=== PATIENT | female | born 1935 | race Caucasian/White ===

== ENCOUNTER 2016-10-20 15:45 | Emergency (ER) | payer MEDICARE, OTHER ==
[2016-10-20] MEDS ORDERED: ACETAMINOPHEN 500 MG TABLET PO ONE (16:17)
[2016-10-20 16:34] LABS: Hematocrit 42.5 % (37.0-47.0); Hemoglobin 14.1 gm/dL (12.5-16.0); Mean Cell Volume 87.4 fl (78-100); Mean Corpuscular Hgb Conc 33.2 g/dl (32-36); Mean Platelet Volume 10.5 fl (6.0-9.5); Neutrophil # 7.1 K/mm3 (1.3-6.0); Neutrophil % 74.1 % (42-75.0); Platelet Count 170 K/mm3 (150-450); Red Blood Count 4.86 M/mm3 (4.2-5.4); Red Cell Distribution Width 13.9 % (11.5-14.0); White Blood Count 9.6 K/mm3 (4.0-10.5)
--- NOTE | 2016-10-20 16:36 | ERNOTE ---
Headache ER HPI - Narrative Date of Service: 10/20/16 - General Presenting Symptoms: headache Time Seen by Provider: 10/20/16 15:58 Source: patient, family, RN/MD, RN notes reviewed, old records Exam Limitations: dementia - Immun/Allergies/Home Medications Immunizations: IMMUNIZATION HX Immunizations Up to Date Yes History of Influenza Vaccine Yes Hx Pneumococcal Vaccination Yes Allergies/Adverse Reactions: Allergies No Known Allergies Allergy (Verified 10/20/16 15:54) Home Medications: HOME MEDICATIONS Enalapril Maleate [Vasotec] 20 mg PO BID 06/19/14 [Last Taken Unknown] Hydrochlorothiazide [Hydrodiuril] 25 mg PO DAILY 06/19/14 [Last Taken Unknown] Meloxicam [Mobic] 15 mg PO BID 06/19/14 [Last Taken Unknown] Metoprolol Succinate [Toprol Xl] 100 mg PO DAILY 06/19/14 [Last Taken Unknown] Simvastatin [Zocor] 10 mg PO DAILY 06/19/14 [Last Taken Unknown] Gabapentin 300 mg PO HS 10/20/16 [Last Taken Unknown] - History of Present Illness Narrative: Yue is a 80-year-old female sent to the emergency department from radiology for a headache. She was having an echocardiogram done when she reported the headache. She initially rated her headache pain at 9 on a scale of 1-10 while in triage, but now reports that the headache is not that bad. She also initially reported that she does not have headaches normally, but her reports that she complains of a headache almost every day. She then admits to having frequent headaches. She then stated that she hadn't had a headache like this one. She has dementia and is a very poor historian. She has not taken her blood pressure medications today. Her blood pressure was over 200 systolic in radiology, but was 157/83 here initially. Her blood pressure readings at a clinic visit almost a month ago were also over 200 systolic. She had not taken her medication that day as well. Date (Duration): 10/20/16 Activity at onset: other - Having echo Timing of Headache: other - Unknown Context Headache: Present: new onset Quality: Present: achy Prior Treament: Reports: recently seen - By senior graphic designer Review of Systems - Review of Systems Constitutional: Absent: fatigue, malaise EYE: Absent: eye pain, blurred vision ENT: Absent: nose congestion, sore throat Respiratory: Absent: shortness of breath, cough Cardiology: Absent: chest pain, syncope Gastrointestinal/Abdominal: Absent: nausea, vomiting Genitourinary: Present: no symptoms reported Musculoskeletal: Present: muscle pain, neck pain. Absent: back pain Skin: Absent: rash, lesions, lumps Neurological: Present: headache. Absent: dizziness/light-headedness Endocrine: Present: no symptoms reported Hematologic/Lymphatic: Present: no symptoms reported Psych: Present: no symptoms reported - Patient's Past Medical History Patient History - Medical: No pertinent hx Patient History - Cardiac/Respiratory: Hypertension, Hyperlipidemia Patient History - Cancer: No Hx of Cancer Patient History - Surgical Procedures: Appendectomy, Cholecystectomy, Hysterectomy, Hernia Repair, Orthopedic Patient History - Other: None LMP (females 10-50): Menopausal - Social History Living Situations: spouse Abuse History: No History of abuse Psych History: No pertinent hx Does anyone smoke in the home?: No Smoking Status: Never smoker Alcohol Use: none Drug Use: none - Immunizations Immunizations Up to Date: Yes Hx Pneumococcal Vaccination: Yes History of Influenza Vaccine: Yes Physical Exam - Physical Exam General Appearance: Present: wd/wn, alert, no apparent distress, other - Pleasant, appropriately dressed and groomed Head Exam: Present: normal inspection, no evidence of injury Eye Exam: Normal inspection: bilateral, PERRL: bilateral, EOMI: bilateral Ears, Nose, Throat: Present: normal ENT inspection Neck: Present: normal inspection, nontender, supple, full range of motion Respiratory: Present: no respiratory distress, normal breath sounds, no accessory muscle use, lungs clear Cardiovascular/Chest: Present: regular rate, rhythm, no murmur Extremity Exam: Present: normal inspection, normal range of motion, no edema Neurological Exam: Present: alert, normal mood/affect, no motor/sensory deficits , normal cerebellar test, disoriented to time, disoriented to situation. Absent : facial droop Skin Exam: Present: normal color, warm/dry ED Progress - Results and Orders Patient's Lab Results:: I have reviewed the patient's lab results. - Vital Signs Patient's Vital Signs:: I have reviewed the patient's vital signs. Vital Signs: Vital Signs 10/20/16 15:46 Temperature 36.5 C Pulse Rate 57 L Respiratory 16 Rate Blood Pressure 157/83 O2 Sat by Pulse 97 Oximetry - CT/Ultrasound CT/Ultrasound Narrative: Head CT without contrast shows no acute intracranial abnormalities - Progress/Reassessment Chief Complaint: Headache Progress:: Improved Progress Note-Subjective: 10/20/16 16:42 Blood pressure now 231/100. She takes enalapril, hydrochlorthiazide and metoprolol at home which she did not take today. IV enalapril and morphine ordered, as well as HCTZ po. HR in 50's so will hold off on any beta elliott for now. Plan - Plan Plan: Blood pressure finally improved with clonidine po. Morphine 1 mg IVP given twice for headache. Difficult to assess if the headache is better as the patient reports that it is gone, but then complains about having a headache a few minutes later. She has not appeared uncomfortable or to be in any distress throughout the duration of her stay.She is to continue her current meds, as cardiology is managing her BP. Departure Clinical Impression: Headache Qualifiers: Headache type: unspecified Headache chronicity pattern: acute headache Intractability: not intractable Qualified Code(s): R51 - Headache Hypertension Qualifiers: Hypertension type: essential hypertension Qualified Code(s): I10 - Essential ( primary) hypertension - Departure Disposition: Home Follow Up Needed Condition: Stable Instructions: Hypertension, [id number] Additional Instructions: TAKE YOUR BLOOD PRESSURE MEDICATIONS DIRECTED ON THE LABEL EVERYDAY YOU CAN TAKE TYLENOL FOR HEADACHE FOLLOW UP WITH YOUR DOCTOR SCHEDULED, OR RETURN TO THE ER IF SYMPTOMS WORSEN Referrals: Melva Watts MD [Primary Care Provider] -
[2016-10-20] MEDS ORDERED: MORPHINE SULFATE 2 MG/ML DISP.SYRIN IM ONE (16:38)
[2016-10-20] MEDS ORDERED: ENALAPRILAT DIHYDRATE 2.5 MG/2 ML VIAL IV ONE ×2 (16:39→17:02)
[2016-10-20] MEDS ORDERED: HYDROCHLOROTHIAZIDE 25 MG TABLET PO ONE (16:39)
[2016-10-20 16:46] LABS: Albumin * 3.8 gm/dl (3.4-5.0); Anion Gap 7.5 mmol/L (6.8-13.8); BUN/Creatinine Ratio 20.5 (9.0-21.6); Bilirubin, Total 1.6 mg/dL (0.0-1.1); Ca. Corrected For Albumin 8.5 mg/dL (8.4-10.2); Calcium * 8.7 mg/dL (7.9-10.9); Carbon Dioxide 33.9 mmol/L (24-32.6); Potassium 3.4 mmol/L (3.4-4.6); Total Protein 7.5 gm/dL (6.2-8.2)
[2016-10-20] MEDS ORDERED: MORPHINE SULFATE 2 MG/ML DISP.SYRIN IV ONE ×2 (17:01→18:06)
[2016-10-20] MEDS ORDERED: HYDROCHLOROTHIAZIDE 25 MG TABLET ONE (17:03)
[2016-10-20] MEDS ORDERED: MORPHINE SULFATE 2 MG/ML DISP.SYRIN ONE ×2 (17:04→17:05)
[2016-10-20] MEDS ORDERED: CLONIDINE HCL 0.1 MG TABLET PO ONE (18:06)
[2016-10-20] MEDS ORDERED: CLONIDINE HCL 0.1 MG TABLET ONE (18:12)
[2016-10-20 19:30] VITALS: BP 172/70
== END 2016-10-20 19:39 | disposition home or self-care (01) ==
LOC: ER 15:45
DX: R51 Headache (principal); I10 Essential (primary) hypertension

== ENCOUNTER 2016-11-15 20:39 | Inpatient (IN) | payer MEDICARE, OTHER ==
[2016-11-15 21:04] LABS: Urine Bilirubin Negative (NEGATIVE); Urine Blood Negative /ul (NEGATIVE); Urine Ketone Negative (NEGATIVE); Urine Nitrite Negative (NEGATIVE); Urine Protein Negative (NEGATIVE); Urine Specific Gravity 1.015 SP.GR. (1.005-1.010); Urine Urobilinogen Normal (NORMAL)
[2016-11-15 21:13] LABS: Urine Appearance Clear; Urine Bacteria 2+; Urine Color Yellow; Urine RBC None Seen /hpf (0-5)
[2016-11-15 21:40] LABS: Hematocrit 43.2 % (37.0-47.0); Hemoglobin 14.4 gm/dL (12.5-16.0); Mean Cell Volume 86.4 fl (78-100); Mean Corpuscular Hemoglobin 28.8 pg (27-31); Mean Corpuscular Hgb Conc 33.3 g/dl (32-36); Mean Platelet Volume 10.1 fl (6.0-9.5); Neutrophil # 5.5 K/mm3 (1.3-6.0); Neutrophil % 66.5 % (42-75.0); Platelet Count 180 K/mm3 (150-450); Red Cell Distribution Width 14.3 % (11.5-14.0); White Blood Count 8.3 K/mm3 (4.0-10.5)
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
[2016-11-15 21:52] LABS: Cocaine Ur Negative (NEGATIVE); Urine Barbiturate Negative (NEGATIVE); Urine Benzodiazepines Negative (NEGATIVE); Urine Opiates Negative (NEGATIVE); Urine PCP Negative (NEGATIVE); Urine THC Negative (NEGATIVE)
[2016-11-15 21:55] LABS: ALT 20 U/L (19-67); AST 18 U/L (0-48); Albumin * 3.8 gm/dl (3.4-5.0); Alkaline Phosphatase * 58 U/L (50-170); BUN/Creatinine Ratio 19.8 (9.0-21.6); Bilirubin, Total 0.7 mg/dL (0.0-1.1); Blood Urea Nitrogen 19 mg/dL (3-23); Ca. Corrected For Albumin 8.8 mg/dL (8.4-10.2); Carbon Dioxide 30.4 mmol/L (24-32.6); Chloride 100 mmol/L (97-106); Glucose * 126 mg/dL (70-110); Potassium 3.4 mmol/L (3.4-4.6); Salicylate Less than 2.8 mg/dL (2.8-20.0); Sodium 141 mmol/L (132-142); TSH * 2.664 uIU/mL (0.358-3.74); Total Protein 7.6 gm/dL (6.2-8.2)
--- NOTE | 2016-11-15 23:44 | HP ---
Chief Complaint - Chief Complaint Date of Service: 11/15/16 Time of Service: 23:44 Chief Complaint: altered mental status History of Present Illness: Yue is a 81 year old patient of Dr Watts with a PMH of bronchitis, HTN, HLD, arthritis and leg pain. Patient was brought into the ER today for altered mental status / worsening confusion. Per chart records, patient's mental health has been worsening over the last several months. She has a history of aggressive behavior to her when he is the "other Don", to the point she fired a home health nurse after believing she was having an affair with him. Patient is alert but disoriented and confused and unable to recall the events of the past day. Patient was previous seen in the ER 10/20/16 with a headache and mild confusion. CT of the head done at that time was non acute. ER eval revealed an unremarkable cbc. unremarkable cmp. tsh wnl. negative uds. negative etoh. ua positive for 75 leukocytes, 5-10 wbc and 2+ wbc. urine culture is pending. last echo done 10/20/16 showed ef 60-65% with mod LVH, diastolic dysfunction, mild MR, mild TR, mild SD, and pulmonary HTN with RVSP at 49. Patient to be admitted for altered mental status and UTI. - Patient's Past Medical History Patient History - Medical: Arthritis, Chronic Pain Patient History - Cardiac/Respiratory: Hypertension, Hyperlipidemia Patient History - Cancer: No Hx of Cancer Patient History - Surgical Procedures: Appendectomy, Cholecystectomy, Hysterectomy, Hernia Repair, Orthopedic Patient History - Other: None LMP (females 10-50): Menopausal - Family History Father Family History - Medical: , History Unknown Family History - Cardiac/Respiratory: History Unknown Family History - Cancer: History Unknown Mother Family History - Medical: , History Unknown Family History - Cardiac/Respiratory: Coronary Heart Disease, Hypertension, Myocardial Infarction Family History - Cancer: No pertinent family hx - Social History Living Situations: spouse Abuse History: No History of abuse Psych History: No pertinent hx Does anyone smoke in the home?: No Smoking Status: Never smoker Have you smoked in the past 12 months: No Do you dip or chew tobacco: No Alcohol Use: none Drug Use: none - Immunizations Immunizations Up to Date: Yes Hx Pneumococcal Vaccination: Yes History of Influenza Vaccine: Yes Review Of Systems (GEN) - Review of Systems Generalized/Overall Review: Present: Malaise, Fatigue. Absent: Fever EENTM: Present: No Symptoms Reported Respiratory: Present: No Symptoms Reported Cardiac: Present: No Symptoms Reported Abdominal: Present: No Symptoms Reported Genitourinary: Present: No Symptoms Reported Musculoskeletal: Present: No Symptoms Reported Neurological: Present: Other - confusion Skin: Present: No Symptoms Reported Endocrine: Present: No Symptoms Reported Misc: All systems neg except as marked Allergies/Adverse Reactions: Allergies Allergy/AdvReac Type Severity Reaction Status Date / Time sulfamethoxazole AdvReac Mild Other Verified 11/15/16 21:13 [From Bactrim] trimethoprim [From Bactrim] AdvReac Mild Other Verified 11/15/16 21:13 Home Medications: HOME MEDICATIONS Enalapril Maleate [Vasotec] 20 mg PO BID 06/19/14 [Last Taken Unknown] Hydrochlorothiazide [Hydrodiuril] 25 mg PO DAILY 06/19/14 [Last Taken Unknown] Meloxicam [Mobic] 7.5 mg PO BID 06/19/14 [Last Taken Unknown] Metoprolol Succinate [Toprol Xl] 100 mg PO BID 06/19/14 [Last Taken Unknown] Simvastatin [Zocor] 10 mg PO DAILY 06/19/14 [Last Taken Unknown] Gabapentin 300 mg PO HS 10/20/16 [Last Taken Unknown] Exam - Exam Vital Signs: Vital Signs - Last Taken Temp 36.4 C L 11/15/16 23:27 Pulse 52 L 11/15/16 23:27 Resp 16 11/15/16 23:27 BP 151/76 11/15/16 22:58 Pulse Ox 100 11/15/16 23:27 Constitutional: Present: Alert, Cooperative, No distress, Elderly ENT Exam: Present: hearing grossly normal Eye Exam: bilateral eye: normal inspection Neck: Present: supple Breasts: Present: Exam deferred Respiratory: Present: chest non-tender, no respiratory distress, decreased breath sounds Cardiovascular/Chest: Present: normal peripheral pulses, regular rate, rhythm, no edema Peripheral Pulses: carotid (R): 2+, carotid (L): 2+, dorsalis-pedis (R): 2+, dorsalis-pedis (L): 2+, radial (R): 2+, radial (L): 2+ Abdomen: Present: soft, nontender, nondistended /Rectal: Present: Exam deferred Extremity: Present: no calf tenderness, other - discolored lowered extremities bilat that are mildly tender to touch - pt states she has "bad circulation" Skin Exam: Present: normal color, warm/dry, no cyanosis Diagnostic Studies: Laboratory Results WBC 8.3 K/mm3 (4.0-10.5) 11/15/16 21:28 RBC 5.00 M/mm3 (4.2-5.4) 11/15/16 21:28 Hgb 14.4 gm/dL (12.5-16.0) 11/15/16 21:28 Hct 43.2 % (37.0-47.0) 11/15/16 21:28 MCV 86.4 fl (78-100) 11/15/16 21:28 MCH 28.8 pg (27-31) 11/15/16 21:28 MCHC 33.3 g/dl (32-36) 11/15/16 21:28 RDW 14.3 % (11.5-14.0) H 11/15/16 21:28 Plt Count 180 K/mm3 (150-450) 11/15/16 21:28 MPV 10.1 fl (6.0-9.5) H 11/15/16 21:28 Immature Gran % (Auto) 0.60 % (0.001-0.429) H 11/15/16 21:28 Immature Gran # (Auto) 0.05 K/mm3 (0.000-0.0310) H 11/15/16 21:28 Neutrophils % 66.5 % (42-75.0) 11/15/16 21:28 Lymphocytes % 22.8 % (20-51) 11/15/16 21:28 Monocytes % 8.1 % (0.0-9) 11/15/16 21:28 Eosinophils % 1.4 % (0.0-3.0) 11/15/16 21:28 Basophils % 0.6 % (0.0-1.0) 11/15/16 21:28 Nucleated RBC % 0.0 k/mm3 (0-1) 11/15/16 21:28 Neutrophils # 5.5 K/mm3 (1.3-6.0) 11/15/16 21:28 Lymphocytes # 1.9 k/mm3 (1.5-3.5) 11/15/16 21:28 Monocytes # 0.7 k/mm3 (0.0-1.0) 11/15/16 21:28 Eosinophils # 0.1 k/mm3 (0.0-0.7) 11/15/16 21:28 Absolute Basophils 0.1 k/mm3 (0.0-0.1) 11/15/16 21:28 Sodium 141 mmol/L (132-142) 11/15/16 21:28 Plasma Sodium 141 mmol/L (130-142) 11/15/16 21:28 Potassium 3.4 mmol/L (3.4-4.6) 11/15/16 21:28 Chloride 100 mmol/L (97-106) 11/15/16 21:28 Carbon Dioxide 30.4 mmol/L (24-32.6) 11/15/16 21:28 Anion Gap 14.0 mmol/L (6.8-13.8) H 11/15/16 21:28 BUN 19 mg/dL (3-23) 11/15/16 21:28 Creatinine 0.96 mg/dL (0.4-1.4) 11/15/16 21:28 Est GFR (Non-Af Amer) 60 mL/min (60-130) 11/15/16 21:28 BUN/Creatinine Ratio 19.8 (9.0-21.6) 11/15/16 21:28 Random Glucose 126 mg/dL (70-110) H 11/15/16 21:28 Calcium 9.0 mg/dL (7.9-10.9) 11/15/16 21:28 Calcium Adj for Albumin 8.8 mg/dL (8.4-10.2) 11/15/16 21:28 Total Bilirubin 0.7 mg/dL (0.0-1.1) 11/15/16 21:28 AST 18 U/L (0-48) 11/15/16 21:28 ALT 20 U/L (19-67) 11/15/16 21:28 Alkaline Phosphatase 58 U/L (50-170) 11/15/16 21:28 Total Protein 7.6 gm/dL (6.2-8.2) 11/15/16 21:28 Albumin 3.8 gm/dl (3.4-5.0) 11/15/16 21:28 TSH 2.664 uIU/mL (0.358-3.74) 11/15/16 21:28 Urine Color Yellow 11/15/16 20:45 Urine Appearance Clear 11/15/16 20:45 Urine pH 7.0 pH (5.0-7.0) 11/15/16 20:45 Ur Specific [place] 1.015 SP.GR. (1.005-1.010) 11/15/16 20:45 Urine Protein Negative mg/dL (NEGATIVE) 11/15/16 20:45 Urine Glucose (UA) Negative mg/dL (NEGATIVE) 11/15/16 20:45 Urine Ketones Negative mg/dL (NEGATIVE) 11/15/16 20:45 Urine Blood Negative /ul (NEGATIVE) 11/15/16 20:45 Urine Nitrate Negative (NEGATIVE) 11/15/16 20:45 Urine Bilirubin Negative mg/dl (NEGATIVE) 11/15/16 20:45 Urine Urobilinogen Normal EU/dl (NORMAL) 11/15/16 20:45 Ur Leukocyte Esterase 75 /ul (NEGATIVE) H 11/15/16 20:45 Urine RBC None seen /hpf (0-5) 11/15/16 20:45 Urine WBC 5-10 /hpf (0-5) H 11/15/16 20:45 Ur Epithelial Cells Trace /hpf (0-5) 11/15/16 20:45 Urine Bacteria 2+ (NONE) H 11/15/16 20:45 Urine Culture Comments Culture to follow 11/15/16 20:45 Salicylates Less than 2.8 mg/dL (2.8-20.0) L 11/15/16 21:28 Urine Opiates Screen Negative (NEGATIVE) 11/15/16 20:45 Acetaminophen Less than 0.2 mcg/mL (10.0-30.0) L 11/15/16 21:28 Barbiturate Screen Negative (NEGATIVE) 11/15/16 20:45 Ur Phencyclidine Scrn Negative (NEGATIVE) 11/15/16 20:45 Urine Amphetamine Negative (NEGATIVE) 11/15/16 20:45 U Benzodiazepines Scrn Negative (NEGATIVE) 11/15/16 20:45 Urine Cocaine Screen Negative (NEGATIVE) 11/15/16 20:45 Urine Marijuana (THC) Negative (NEGATIVE) 11/15/16 20:45 Ethyl Alcohol Less than 3.0 mg/dL (0.0-10.0) 11/15/16 21:28 Assessment/Plan - Narrative Narrative: Altered mental status (AMS) - ? etiology, multiple possibilities exist and may actually be a combination of etiologies - patient on high risk medication - gabapentin - check gabapentin blood level - hold med while admitted - gabapentin adverse reactions include: confusion and alteration in thinking - due to confusion, patient is unable to truly give us a full picture of her symptoms and therefore will need a full workup. - check chest xray - check troponin - with AMS, again, patient may not be competent enough to accurately tell us if she is having chest pain or not. - check ammonia level, lactic acid, procalctonin and vitamin b12 - check blood cultures, especially in light of UTI. - monitor on telemetry - vital signs q 4 hours - reassess in am. UTI - urine culture pending - Start abx - Rocephin 1 gm iv daily - Day #1 - check blood cultures - can contribute to AMS - hydrate gently with NS, especially in light of diastolic dysfunction and pulmonary HTN diastolic CHF / pulmonary HTN - daily weights - strict I&Os - appears euvolemic at this time. - watch fluid status closely HTN - cont bp meds - had HTN urgency at end of september 2016 with SBP over 200, was treated in ER Chronic pain - hold gabapentin for now - use tylenol prn. code status: Full Code VTE: early ambulation GI Proph: protonix po - Assessment/Plan (1) Altered mental status Problem: Acute Qualifiers: Altered mental status type: unspecified Qualified Code(s): R41.82 - Altered mental status, unspecified (2) Urinary tract infection Problem: Acute Qualifiers: Urinary tract infection type: site unspecified Hematuria presence: without hematuria Qualified Code(s): N39.0 - Urinary tract infection, site not specified (3) HLD (hyperlipidemia) Problem: Chronic Qualifiers: Hyperlipidemia type: unspecified Qualified Code(s): E78.5 - Hyperlipidemia , unspecified (4) Chronic pain Problem: Chronic Qualifiers: Chronic pain type: other chronic pain Qualified Code(s): G89.29 - Other chronic pain (5) Hypertension Problem: Chronic Qualifiers: Hypertension type: essential hypertension Qualified Code(s): I10 - Essential (primary) hypertension (6) Diastolic CHF Problem: Chronic Qualifiers: Congestive heart failure chronicity: chronic Qualified Code(s): I50.32 - Chronic diastolic (congestive) heart failure (7) Pulmonary HTN Problem: Chronic
[2016-11-16] MEDS: NORMAL SALINE 1,000 ML IV PRN ×3 (00:03→21:59)
[2016-11-16 00:25] LABS: BNP * 335 pg/mL (5-550); Troponin I Less than 0.017 ng/ml (0.00-0.10); Vitamin B12 319 pg/mL (193-986)
[2016-11-16] MEDS ORDERED: METOPROLOL SUCCINATE 50 MG TABLET.SA PO ONE (00:48)
[2016-11-16] MEDS: ENALAPRIL MALEATE 20 MG TABLET PO SCH ×3 (00:52→20:54)
[2016-11-16] MEDS: METOPROLOL SUCCINATE 100 MG TABLET.SA PO SCH ×3 (00:52→20:53)
[2016-11-16] MEDS: ACETAMINOPHEN 325 MG TABLET PO PRN ×2 (04:18→12:52)
[2016-11-16 06:29] LABS: Hematocrit 41.1 % (37.0-47.0); Hemoglobin 13.7 gm/dL (12.5-16.0); Mean Corpuscular Hemoglobin 28.7 pg (27-31); Mean Corpuscular Hgb Conc 33.3 g/dl (32-36); Mean Platelet Volume 10.1 fl (6.0-9.5); Neutrophil % 65.7 % (42-75.0); Platelet Count 164 K/mm3 (150-450); Red Blood Count 4.78 M/mm3 (4.2-5.4); Red Cell Distribution Width 14.2 % (11.5-14.0); White Blood Count 7.5 K/mm3 (4.0-10.5)
--- NOTE | 2016-11-16 06:57 | PN ---
Progess Note - Interim Narrative: 11/16/16 06:50 Pt. feels fine this am, no complaints. She doesn't recall very well what happened yesterday but can tell me where she is this am [facility], year 1917 (but then corrects 2016) and tells me her name. She states she feels well and would like to go home. PE: Speech is slow and purposeful, but is clear and coherent. CN 2-12 are grossly intact No dysmetria but very slow and purposeful movements. Hand financial controller is equal eliezer 4+ eliezer Plantar and dorsiflexion is equal eliezer and also 4+ A/P: Acute mental status changes. Could be dementia coupled with a UTI causing this with some improvement after dose of abx, but not certain as I am seeing her for first time and don't know her in an outpt setting. PCP notes do mention some memory issues. Do believe outpt neuro consult would be appropriate as Parkinson is one possibility but would assess and treat this outpt. UTI: appears to be better, will start her on cipro discharge planning: believe she can go home later today, but will need close outpt f/u. If sx persist may need NH placement.
[2016-11-16] MEDS: CIPROFLOXACIN HCL 250 MG TABLET PO SCH ×2 (08:24→20:56)
[2016-11-16] MEDS: HYDROCHLOROTHIAZIDE 25 MG TABLET PO SCH (08:24)
[2016-11-16] MEDS ORDERED: SIMVASTATIN 10 MG TABLET PO SCH (09:00)
--- NOTE | 2016-11-16 11:32 | DS ---
(1) Altered mental status Problem: Acute Qualifiers: Altered mental status type: disorientation Qualified Code(s): R41.0 - Disorientation, unspecified (2) Confusion Problem: Resolved (3) Urinary tract infection Problem: Acute Qualifiers: Urinary tract infection type: site unspecified Hematuria presence: without hematuria Qualified Code(s): N39.0 - Urinary tract infection, site not specified (4) Hypertension Problem: Chronic Qualifiers: Hypertension type: essential hypertension Qualified Code(s): I10 - Essential (primary) hypertension Description of Stay: pt admitted for acute mental status changes, UTI. She still appeared to be cognitively slow but without unilateral or definite neurologic deficits other than generalized weakness and slowed movements eliezer and slow purposeful speech. I believe these are more chronic condition issues that were acutely worsened with her UTI. She may have parkinson which would explain all this, but this needs outpt. f/u. I don't believe she is safe to drive or be by herself and is therefore considered home bound, in which case services would be appropriate for continued assessment of her condition. She also may benefit from PT for balance/coordination assessments and tx. Her meloxicam and gabapentin were held for now as these can sometimes cause confusion. These can be restarted as PCP deems appropriate to control pain. Procedures Performed: none Discharge Disposition: Home self care Disposition: Home self-care Condition: Fair Discharge Activity: Activity as tolerated Discharge Diet: General/regular food Referrals: Melva Watts MD [Primary Care Provider] - One Week Additional Patient Instructions (free text): TCM appointment at discharge. Call Deepthi at [phone]. Please fax discharge orders to [facility]. Prescriptions (Any new or edited meds): Ciprofloxacin HCl [Cipro] 250 mg PO BID #10 tablet Complete Home Medications List: Complete Home Medication List: Enalapril Maleate [Vasotec] 20 mg PO BID 06/19/14 Hydrochlorothiazide [Hydrodiuril] 25 mg PO DAILY 06/19/14 Metoprolol Succinate [Toprol Xl] 100 mg PO BID 06/19/14 Simvastatin [Zocor] 10 mg PO DAILY 06/19/14 Ciprofloxacin HCl [Cipro] 250 mg PO BID #10 tablet 11/16/16
[2016-11-16] MEDS ORDERED: ENALAPRIL MALEATE 20 MG TABLET PO STA (12:41)
--- NOTE | 2016-11-16 13:11 | PN ---
Progess Note - Interim Narrative: 11/16/16 13:07 Called from floor as patient acting more confused and SBP in the 200's. Assessing her she could only tell me her name, not place and date as she did this am. No other neurologic deficits noted on exam. A/P: Acute mental status changes that are not her typical baseline. Possibly from hypertensive urgency. Will give her vasotec 20mg now and continue bid. If still elevated will give clonidine o.1mg po. She is not capable of going home and being safe and she is at high risk for having TIA possible CVA so will need to continue her in the hospital on inpatient basis.
[2016-11-16] MEDS ORDERED: CLONIDINE HCL 0.1 MG TABLET PO ONE (14:47)
[2016-11-16] MEDS: SIMVASTATIN 10 MG TABLET PO SCH (20:53)
[2016-11-17] MEDS ORDERED: HALOPERIDOL LACTATE 5 MG/ML VIAL IM ONE (00:07)
[2016-11-17] MEDS ORDERED: hydrALAZINE HCL 25 MG TABLET ONE (00:15)
[2016-11-17] MEDS ORDERED: ENALAPRILAT DIHYDRATE 1.25 MG/ML VIAL IV ONE (00:43)
[2016-11-17] MEDS: METOPROLOL SUCCINATE 100 MG TABLET.SA PO SCH (08:44)
[2016-11-17] MEDS: ENALAPRIL MALEATE 20 MG TABLET PO SCH ×2 (08:44→20:28)
[2016-11-17] MEDS: HYDROCHLOROTHIAZIDE 25 MG TABLET PO SCH (08:44)
[2016-11-17] MEDS: CIPROFLOXACIN HCL 250 MG TABLET PO SCH (08:44)
[2016-11-17 09:47] LABS: Hematocrit 42.4 % (37.0-47.0); Hemoglobin 14.2 gm/dL (12.5-16.0); Mean Cell Volume 86.7 fl (78-100); Mean Corpuscular Hgb Conc 33.5 g/dl (32-36); Mean Platelet Volume 9.7 fl (6.0-9.5); Neutrophil # 5.4 K/mm3 (1.3-6.0); Platelet Count 168 K/mm3 (150-450); Red Blood Count 4.89 M/mm3 (4.2-5.4); Red Cell Distribution Width 14.3 % (11.5-14.0); White Blood Count 7.2 K/mm3 (4.0-10.5)
[2016-11-17] MEDS ORDERED: LORazepam 2 MG/ML DISP.SYRIN IV ONE ×2 (09:47→10:00)
[2016-11-17] MEDS: NORMAL SALINE 1,000 ML IV PRN (09:51)
[2016-11-17] MEDS: amLODIPine BESYLATE 10 MG TABLET PO SCH (09:52)
[2016-11-17 09:54] LABS: Anion Gap 12.1 mmol/L (6.8-13.8); BUN/Creatinine Ratio 15.4 (9.0-21.6); Calcium * 8.6 mg/dL (7.9-10.9); Carbon Dioxide 29.1 mmol/L (24-32.6); Estimated Creat Clear 50.5; Potassium 3.2 mmol/L (3.4-4.6)
[2016-11-17] MEDS ORDERED: POTASSIUM CHLORIDE 40 MEQ/15 ML BTL PO ONE (11:45)
[2016-11-17] MEDS ORDERED: POTASSIUM CHLORIDE 20 MEQ TABLET.SA PO ONE (15:30)
--- NOTE | 2016-11-17 15:58 | PN ---
Subjective - Date and Time Seen Date: 11/17/16 Time: 08:00 Subjective Narrative: Patient seen and examined at bedside. Patient was agitated overnight and given a one-time dose of Haldol 5 mg. This morning, the patient is only able to tell me that her name is Carlos otherwise she is unable to tell me where she is at, her date, the year, who the president is. Objective Objective Narrative: Unable to obtain secondary to patient's clinical condition - Vitals Vitals: Last Vital Signs Temp 36.6 C 11/17/16 14:07 Pulse 54 L 11/17/16 14:07 Resp 18 11/17/16 14:07 BP 187/63 11/17/16 14:07 Pulse Ox 100 11/17/16 14:07 - Abnormal Lab Findings Abnormal Lab Findings: Abnormal Lab Results 11/17/16 11/17/16 Range/Units 09:36 09:36 RDW 14.3 H (11.5-14.0) % MPV 9.7 H (6.0-9.5) fl Lymphocytes % 15.9 L (20-51) % Lymphocytes # 1.2 L (1.5-3.5) k/mm3 Potassium 3.2 L (3.4-4.6) mmol/L Random Glucose 148 H (70-110) mg/dL - Exam Constitutional: Present: Alert, No distress, Elderly. Absent: Oriented x3 ENT Exam: Present: moist mucous membranes Respiratory: Present: lungs clear, normal breath sounds, no respiratory distress , no accessory muscle use Cardiovascular/Chest: Present: regular rate, rhythm, edema - Trace edema in bilateral lower extremities Abdomen: Present: soft, nontender, nondistended Extremity: Present: pedal edema - Trace edema in bilateral lower extremities Skin Exam: Present: warm/dry, other - Venous stasis dermatitis skin changes evident to bilateral lower extremities Neurologic: Present: alert, other - Unable to do a thorough neuro exam secondary to patient's clinical condition and being uncooperative and not following commands. Absent: oriented x 3 Appearance: Absent: appropriate appearance, appropriate insight Assessment/Plan - Problems/Diagnosis (1) Encephalopathy Problem: Acute Narrative: Unclear etiology and work-up thus far unrevealing. It is also unclear what the patient's true baseline mental status. MRI ordered for further evaluation of encephalopathy. I am suspicious that the patient likely has baseline dementia which is acutely worsened by hospital associated delirium. Psychiatry consulted ; await assessment, input and recommendations. The patient will need to be discharged to a nursing facility. (2) Delirium Problem: Acute (3) Hypokalemia Problem: Acute Narrative: Potassium replaced. Recheck BMP in AM. (4) Urinary tract infection Problem: Suspected Qualifiers: Urinary tract infection type: acute cystitis Hematuria presence: without hematuria Qualified Code(s): N30.00 - Acute cystitis without hematuria Narrative: Final urine culture result shows no growth. Continue IV Rocephin with plans for patient to complete a total 3 day course of antibiotics. Patient has received 3 doses of IV Rocephin and she will receive her final dose evening. (5) Hypertension Problem: Chronic Qualifiers: Hypertension type: essential hypertension Qualified Code(s): I10 - Essential (primary) hypertension Narrative: Markedly elevated blood pressures possibly contributing to encephalopathy. Antihypertensive regimen adjusted. Continue to monitor blood pressure closely and continue to make changes to the patient's medications as necessary. Goal blood pressure is less than 140-150/90 mmHg.
[2016-11-17] MEDS: ENOXAPARIN SODIUM 40 MG/0.4 ML SYRG SC SCH (17:05)
[2016-11-17] MEDS: ACETAMINOPHEN 325 MG TABLET PO PRN (17:23)
[2016-11-17] MEDS: SIMVASTATIN 10 MG TABLET PO SCH (20:28)
[2016-11-18 06:34] LABS: Anion Gap 11.4 mmol/L (6.8-13.8); BUN/Creatinine Ratio 15.1 (9.0-21.6); Carbon Dioxide 29.2 mmol/L (24-32.6); Potassium 3.6 mmol/L (3.4-4.6)
[2016-11-18] MEDS: ASPIRIN 81 MG TAB.CHEW PO SCH (09:24)
[2016-11-18] MEDS: amLODIPine BESYLATE 10 MG TABLET PO SCH (09:24)
[2016-11-18] MEDS: HYDROCHLOROTHIAZIDE 25 MG TABLET PO SCH (09:24)
[2016-11-18] MEDS: METOPROLOL SUCCINATE 100 MG TABLET.SA PO SCH (09:25)
[2016-11-18] MEDS: ENALAPRIL MALEATE 20 MG TABLET PO SCH ×2 (09:26→20:57)
[2016-11-18] MEDS: hydrALAZINE HCL 50 MG TABLET PO PRN (11:05)
[2016-11-18] MEDS: ENOXAPARIN SODIUM 40 MG/0.4 ML SYRG SC SCH (16:06)
[2016-11-18] MEDS: SPIRONOLACTONE 25 MG TABLET PO SCH (16:06)
--- NOTE | 2016-11-18 16:14 | PN ---
Subjective - Date and Time Seen Date: 11/18/16 Time: 08:30 Subjective Narrative: Patient seen and examined at bedside. Patients agitation is improved and she has not had any agitated behavior over the past 24 hours or so. The patient is still only able to tell me that her name is Carlos otherwise she is unable to tell me where she is at (she states we are in the basement), her date, the year, who the president is. Objective Objective Narrative: Unable to obtain a thorough review of systems secondary to patient's clinical condition and baseline dementia; however, the patient denies any issues or concerns - Review of Systems Generalized/Overall Review: Reports: No Symptoms Reported EENTM: Reports: No Symptoms Reported Respiratory: Reports: No Symptoms Reported Cardiac: Reports: No Symptoms Reported Abdominal: Reports: No Symptoms Reported Genitourinary Symptoms: Reports: No Symptoms Reported Musculoskeletal Complaints: Reports: No Symptoms Reported Neurological: Reports: No Symptoms Reported Skin: Reports: No Symptoms Reported Endocrine: Reports: No Symptoms Reported Misc: All systems neg except as marked - Vitals Vitals: Last Vital Signs Temp 36.5 C 11/18/16 14:35 Pulse 73 11/18/16 14:35 Resp 18 11/18/16 14:35 BP 160/70 11/18/16 14:35 Pulse Ox 97 11/18/16 14:35 - Exam Constitutional: Present: Alert, Well nourished, No distress, Elderly. Absent: Oriented x3 ENT Exam: Present: moist mucous membranes Respiratory: Present: lungs clear, normal breath sounds, no respiratory distress , no accessory muscle use Cardiovascular/Chest: Present: regular rate, rhythm, edema - Trace edema in bilateral lower extremities Abdomen: Present: soft, nontender, nondistended Extremity: Present: normal inspection, pedal edema - Trace edema in bilateral lower extremities Skin Exam: Present: warm/dry, other - Venous stasis dermatitis skin changes evidence of bilateral lower extremities Neurologic: Present: no motor/sensory deficits, alert. Absent: oriented x 3 - Oriented to person only Appearance: Present: impaired insight, impaired recent memory, impaired remote memory Assessment/Plan - Problems/Diagnosis (1) Encephalopathy Problem: Acute Narrative: Brain MRI yesterday unremarkable. I still suspect that the patient has baseline dementia which was acutely worsened by the UTI +/- hospital associated delirium. The patient's mental status has markedly improved since admission and she has even improved since I first saw her yesterday. The safest plan for the patient would be for her to be discharged to a care facility, which would likely be long-term. The patient is medically stable for discharge once placement has been arranged. (2) Delirium Problem: Acute (3) Hypokalemia Problem: Resolved Narrative: Patient received 40 mEq of oral potassium yesterday. Potassium level this morning is within normal limits. (4) Urinary tract infection Problem: Suspected Qualifiers: Urinary tract infection type: acute cystitis Hematuria presence: without hematuria Qualified Code(s): N30.00 - Acute cystitis without hematuria Narrative: Final urine culture results show no growth. Patient completed a three-day course of IV Rocephin which was completed on 11/18/2016. (5) Hypertension Problem: Chronic Qualifiers: Hypertension type: essential hypertension Qualified Code(s): I10 - Essential (primary) hypertension Narrative: Antihypertensive regimen again adjusted today. Patient started on spironolactone 50 mg by mouth daily. Recheck BMP in the morning. Continue to monitor blood pressure. Goal blood pressure is less than 140-150/90mmHg. I will likely not make any further adjustments in the patient's medications as we need to get his medication some time to see the full effects. If blood pressure remains elevated despite treatment with multiple antihypertensive medications, further workup for secondary causes of hypertension could be considered as an outpatient.
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
[2016-11-18] MEDS: SIMVASTATIN 10 MG TABLET PO SCH (20:58)
[2016-11-19] MEDS: ACETAMINOPHEN 325 MG TABLET PO PRN ×2 (00:35→07:45)
[2016-11-19] MEDS ORDERED: hydrALAZINE HCL 25 MG TABLET ONE (01:05)
[2016-11-19] MEDS: hydrALAZINE HCL 50 MG TABLET PO PRN ×2 (01:06→22:07)
[2016-11-19 06:24] LABS: Anion Gap 12.1 mmol/L (6.8-13.8); BUN/Creatinine Ratio 15.1 (9.0-21.6); Calcium * 9.3 mg/dL (7.9-10.9); Carbon Dioxide 27.3 mmol/L (24-32.6); Potassium 3.4 mmol/L (3.4-4.6)
--- NOTE | 2016-11-19 08:00 | PN ---
Subjective - Date and Time Seen Date: 11/19/16 Time: 07:51 Subjective Narrative: Patient seen and examined at bedside. No agitation or aggressive behaviors. No new issues or concerns. Objective Objective Narrative: Unable to obtain a thorough review of systems secondary to patient's baseline dementia; however, the patient denies any issues or concerns - Review of Systems Generalized/Overall Review: Reports: No Symptoms Reported EENTM: Reports: No Symptoms Reported Respiratory: Reports: No Symptoms Reported Cardiac: Reports: No Symptoms Reported Abdominal: Reports: No Symptoms Reported Genitourinary Symptoms: Reports: No Symptoms Reported Musculoskeletal Complaints: Reports: No Symptoms Reported Neurological: Reports: No Symptoms Reported Skin: Reports: No Symptoms Reported Endocrine: Reports: No Symptoms Reported Misc: All systems neg except as marked - Vitals Vitals: Last Vital Signs Temp 36.9 C 11/19/16 01:45 Pulse 71 11/19/16 02:46 Resp 22 H 11/19/16 01:45 BP 159/60 11/19/16 02:46 Pulse Ox 96 11/19/16 01:45 - Abnormal Lab Findings Abnormal Lab Findings: Abnormal Lab Results 11/19/16 Range/Units 05:20 Random Glucose 118 H D (70-110) mg/dL - Exam Constitutional: Present: Alert, Cooperative, No distress, Elderly. Absent: Oriented x3 ENT Exam: Present: moist mucous membranes Respiratory: Present: lungs clear, normal breath sounds, no respiratory distress , no accessory muscle use Cardiovascular/Chest: Present: regular rate, rhythm, no edema Abdomen: Present: soft, nontender, nondistended Skin Exam: Present: warm/dry, other - Venous stasis dermatitis skin changes noted in bilateral lower extremities Neurologic: Present: alert. Absent: oriented x 3 Assessment/Plan - Problems/Diagnosis (1) Encephalopathy Problem: Acute Narrative: Brain MRI on 11/17/2016 was unremarkable. I still suspect that the patient has baseline dementia which was acutely worsened by the UTI +/- hospital associated delirium. The patient's mental status has markedly improved since admission. The safest plan for the patient would be for her to be discharged to a care facility, which would likely be long-term as her dementia progresses. The patient is medically stable for discharge once placement has been arranged. (2) Delirium Problem: Acute (3) Urinary tract infection Problem: Resolved Qualifiers: Urinary tract infection type: acute cystitis Hematuria presence: without hematuria Qualified Code(s): N30.00 - Acute cystitis without hematuria Narrative: Final urine culture results show no growth. Patient completed a three-day course of IV Rocephin which was completed on 11/18/2016. (4) Hypokalemia Problem: Resolved Narrative: Potassium level this morning is within normal limits. (5) Hypertensive urgency Problem: Acute Narrative: The patient has had multiple adjustments made in her antihypertensive regimen over the past few days. Continue to monitor blood pressure. Goal blood pressure is less than 140-150/90mmHg. I will likely not make any further adjustments in the patient's medications during her inpatient stay as we need to get the medication some time to see the full effects. If blood pressure remains elevated despite treatment with multiple antihypertensive medications, further workup for secondary causes of hypertension could be considered as an outpatient. (6) Hypertension Problem: Chronic Qualifiers: Hypertension type: essential hypertension Qualified Code(s): I10 - Essential (primary) hypertension
[2016-11-19] MEDS ORDERED: HALOPERIDOL 1 MG TABLET PO STA (11:02)
[2016-11-19] MEDS: METOPROLOL SUCCINATE 100 MG TABLET.SA PO SCH (11:22)
[2016-11-19] MEDS: ASPIRIN 81 MG TAB.CHEW PO SCH (11:22)
[2016-11-19] MEDS: amLODIPine BESYLATE 10 MG TABLET PO SCH (11:22)
[2016-11-19] MEDS: HYDROCHLOROTHIAZIDE 25 MG TABLET PO SCH (11:23)
[2016-11-19] MEDS: ENALAPRIL MALEATE 20 MG TABLET PO SCH ×2 (11:23→20:26)
[2016-11-19] MEDS: SPIRONOLACTONE 25 MG TABLET PO SCH (11:23)
[2016-11-19] MEDS: ENOXAPARIN SODIUM 40 MG/0.4 ML SYRG SC SCH (17:00)
[2016-11-19] MEDS: HALOPERIDOL 1 MG TABLET PO SCH ×2 (19:14→20:25)
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
[2016-11-19] MEDS: SIMVASTATIN 10 MG TABLET PO SCH (20:27)
[2016-11-20] MEDS: SPIRONOLACTONE 25 MG TABLET PO SCH (08:37)
[2016-11-20] MEDS: ASPIRIN 81 MG TAB.CHEW PO SCH (08:37)
[2016-11-20] MEDS: amLODIPine BESYLATE 10 MG TABLET PO SCH (08:37)
[2016-11-20] MEDS: ENALAPRIL MALEATE 20 MG TABLET PO SCH ×2 (08:37→21:26)
[2016-11-20] MEDS: HALOPERIDOL 1 MG TABLET PO SCH ×2 (08:37→21:25)
[2016-11-20] MEDS: METOPROLOL SUCCINATE 100 MG TABLET.SA PO SCH (08:37)
[2016-11-20] MEDS: HYDROCHLOROTHIAZIDE 25 MG TABLET PO SCH (08:38)
[2016-11-20] MEDS ORDERED: HALOPERIDOL 1 MG TABLET PO SCH (09:00)
--- NOTE | 2016-11-20 20:50 | PN ---
Subjective - Date and Time Seen Date: 11/20/16 Time: 20:50 Subjective Narrative: Pt seen. She is alert and oriented to self only. She has no complaints. Family is present at bedside. Nursing reports no BM x 5 days. Objective - Vitals Vitals: Last Vital Signs Temp 36.9 C 11/20/16 14:39 Pulse 58 L 11/20/16 14:39 Resp 18 11/20/16 14:39 BP 116/43 11/20/16 14:39 Pulse Ox 97 11/20/16 14:39 - Exam Constitutional: Present: Alert, No distress, Elderly ENT Exam: Present: normal ENT inspection, hearing grossly normal. Absent: nasal drainage, pharyngeal erythema Neck: Present: full range of motion, supple, normal inspection Breasts: Present: Exam deferred Respiratory: Present: lungs clear, No rales, No wheezing Cardiovascular/Chest: Present: normal peripheral pulses, regular rate, rhythm Abdomen: Present: Normal bowel sounds, soft, nontender /Rectal: Present: Exam deferred Extremity: Present: normal range of motion, normal inspection, pedal edema - +1 ble pitting edema Skin Exam: Present: warm/dry, no cyanosis Lymphatic: Present: no adenopathy Neurologic: Present: no motor/sensory deficits, alert Appearance: Present: impaired insight Eye contact: Present: good eye contact, normal speech Thoughts: Present: no apparent hallucination Assessment/Plan - Problems/Diagnosis (1) Encephalopathy Problem: Acute Narrative: Brain MRI on 11/17/2016 was unremarkable. It was suspected that the patient has baseline dementia which was acutely worsened by the UTI +/- hospital associated delirium. 11/18/16 Pt's delirious state worsened and required Haldol. Psychiatry consulted ; Placement to a nursing facility determined to be necessary. 11/19/16- Seen by Psychiatry. 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 She was started on Haldol 1 mg po b.i.d Discharge planning: The safest plan for the patient would be for her to be discharged to a care facility, which would likely be long-term as her dementia progresses. The patient is medically stable for discharge once placement has been arranged. 11/19- Still awaiting placement finding: Rejected by the [facility] because they did not have enough staff, Dr. Dennison does not agree with placement at [facility]- " because the level of supervision is not enough or appropriate for what we are dealing with." (2) Hypertensive urgency Problem: Acute Narrative: 11/16/16- Had SBP in the 200's but no other neurologic deficits noted on exam. She required IV vasotec. Pt was initially on Enalapril 20bid, Metoprolol 100mg daily and HCTZ. Amlodipine and Spironolactone added. Bps now improved. (3) Urinary tract infection Problem: Resolved Qualifiers: Urinary tract infection type: acute cystitis Hematuria presence: without hematuria Qualified Code(s): N30.00 - Acute cystitis without hematuria Narrative: Final urine culture results show no growth. Patient completed a three-day course of IV Rocephin which was completed on 11/18/2016 (4) Diastolic CHF Problem: Chronic Qualifiers: Congestive heart failure chronicity: chronic Qualified Code(s): I50.32 - Chronic diastolic (congestive) heart failure Narrative: Diuresed with Lasix. (5) HLD (hyperlipidemia) Problem: Chronic Qualifiers: Hyperlipidemia type: unspecified Qualified Code(s): E78.5 - Hyperlipidemia , unspecified (6) Hypokalemia Problem: Resolved
[2016-11-20] MEDS: ENOXAPARIN SODIUM 40 MG/0.4 ML SYRG SC SCH (21:24)
[2016-11-20] MEDS: SIMVASTATIN 10 MG TABLET PO SCH (21:25)
--- NOTE | 2016-11-21 06:53 | PN ---
Subjective - Date and Time Seen Date: 11/21/16 Time: 06:49 Subjective Narrative: Pt examined this am. Daughter is at bedside and says her belongings are being moved to [facility] today. Daughter says she had a restful night. No other issues according to nursing. Objective - Vitals Vitals: Last Vital Signs Temp 37 C 11/20/16 21:30 Pulse 64 11/20/16 21:30 Resp 16 11/20/16 21:30 BP 119/59 11/20/16 21:30 Pulse Ox 97 11/20/16 21:30 - Exam Constitutional: Present: Alert, Cooperative, No distress, Other - Oriented to self only., Elderly ENT Exam: Present: normal ENT inspection, hearing grossly normal Neck: Present: full range of motion, supple, normal inspection Breasts: Present: Exam deferred Respiratory: Present: lungs clear Cardiovascular/Chest: Present: normal peripheral pulses, regular rate, rhythm, no edema Abdomen: Present: Normal bowel sounds, soft, nontender /Rectal: Present: Exam deferred Extremity: Present: normal range of motion, non-tender, normal inspection Skin Exam: Present: warm/dry, no cyanosis Lymphatic: Present: no adenopathy Neurologic: Present: alert, other - Flat affect Appearance: Present: impaired insight Eye contact: Present: cooperative, good eye contact Thoughts: Present: no apparent hallucination Assessment/Plan - Problems/Diagnosis (1) Encephalopathy Problem: Acute Narrative: rain MRI on 11/17/2016 was unremarkable. It was suspected that the patient has baseline dementia which was acutely worsened by the UTI +/- hospital associated delirium. 11/18/16 Pt's delirious state worsened and required Haldol. Psychiatry consulted ; Placement to a nursing facility determined to be necessary. 11/19/16- Seen by Psychiatry. 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 She was started on Haldol 1 mg po b.i.d Discharge planning: The safest plan for the patient would be for her to be discharged to a care facility, which would likely be long-term as her dementia progresses. The patient is medically stable for discharge once placement has been arranged. 11/19- Still awaiting placement finding: Rejected by the [facility] because they did not have enough staff, Dr. Dennison does not agree with placement at [facility]- " because the level of supervision is not enough or appropriate for what we are dealing with." 11/21/16- Daughter says she has found placement at [facility] and that is where they wish for her to be. Anticipate discharge tomorrow. (2) Hypertensive urgency Problem: Acute Narrative: 11/16/16- Had SBP in the 200's but no other neurologic deficits noted on exam. She required IV vasotec. Pt was initially on Enalapril 20bid, Metoprolol 100mg daily and HCTZ. Amlodipine and Spironolactone added. Bps now improved. (3) Urinary tract infection Problem: Resolved Qualifiers: Urinary tract infection type: acute cystitis Hematuria presence: without hematuria Qualified Code(s): N30.00 - Acute cystitis without hematuria Narrative: Final urine culture results show no growth. Patient completed a three-day course of IV Rocephin which was completed on 11/18/2016 (4) Diastolic CHF Problem: Chronic Qualifiers: Congestive heart failure chronicity: chronic Qualified Code(s): I50.32 - Chronic diastolic (congestive) heart failure Narrative: Diuresed with Lasix. Swelling is improved. (5) HLD (hyperlipidemia) Problem: Chronic Qualifiers: Hyperlipidemia type: unspecified Qualified Code(s): E78.5 - Hyperlipidemia , unspecified (6) Hypokalemia Problem: Resolved
[2016-11-21] MEDS: HALOPERIDOL 1 MG TABLET PO SCH ×2 (08:02→20:25)
[2016-11-21] MEDS: ASPIRIN 81 MG TAB.CHEW PO SCH (08:02)
[2016-11-21] MEDS: SPIRONOLACTONE 25 MG TABLET PO SCH (08:03)
[2016-11-21] MEDS: amLODIPine BESYLATE 10 MG TABLET PO SCH (08:03)
[2016-11-21] MEDS: METOPROLOL SUCCINATE 100 MG TABLET.SA PO SCH (08:03)
[2016-11-21] MEDS: HYDROCHLOROTHIAZIDE 25 MG TABLET PO SCH (08:03)
[2016-11-21] MEDS: ENALAPRIL MALEATE 20 MG TABLET PO SCH ×2 (08:03→20:25)
[2016-11-21] MEDS: POLYETHYLENE GLYCOL 3350 119 GM BTL PO SCH (08:04)
[2016-11-21 08:29] LABS: Anion Gap 13.9 mmol/L (6.8-13.8); BUN/Creatinine Ratio 24.7 (9.0-21.6); Carbon Dioxide 26.7 mmol/L (24-32.6); Estimated Creat Clear 40.6; Potassium 3.6 mmol/L (3.4-4.6)
[2016-11-21] MEDS: ENOXAPARIN SODIUM 40 MG/0.4 ML SYRG SC SCH (17:33)
[2016-11-21] MEDS: SIMVASTATIN 10 MG TABLET PO SCH (20:25)
[2016-11-21] MEDS ORDERED: SENNOSIDES 8.6 MG TABLET PO SCH (21:00)
[2016-11-22 08:28] VITALS: BP 120/58
[2016-11-22] MEDS: ASPIRIN 81 MG TAB.CHEW PO SCH (09:16)
[2016-11-22] MEDS: HALOPERIDOL 1 MG TABLET PO SCH (09:16)
[2016-11-22] MEDS: METOPROLOL SUCCINATE 100 MG TABLET.SA PO SCH (09:16)
[2016-11-22] MEDS: HYDROCHLOROTHIAZIDE 25 MG TABLET PO SCH (09:16)
[2016-11-22] MEDS: SPIRONOLACTONE 25 MG TABLET PO SCH (09:16)
[2016-11-22] MEDS: ENALAPRIL MALEATE 20 MG TABLET PO SCH (09:17)
[2016-11-22] MEDS: amLODIPine BESYLATE 10 MG TABLET PO SCH (09:17)
[2016-11-22] MEDS: POLYETHYLENE GLYCOL 3350 119 GM BTL PO SCH (09:18)
--- NOTE | 2016-11-22 09:28 | DS ---
(1) Encephalopathy Problem: Acute (2) Delirium Problem: Acute (3) Urinary tract infection Problem: Resolved Qualifiers: Urinary tract infection type: acute cystitis Hematuria presence: without hematuria Qualified Code(s): N30.00 - Acute cystitis without hematuria (4) Hypokalemia Problem: Resolved (5) Hypertensive urgency Problem: Acute (6) Hypertension Problem: Chronic Qualifiers: Hypertension type: essential hypertension Qualified Code(s): I10 - Essential (primary) hypertension (7) Dementia Problem: Chronic Description of Stay: ADMISSION DATE: 11/15/2016 DISCHARGE DATE: 11/22/2016 ADMISSION HPI BY CRISTINA GREENE: Yue is a 81 year old patient of Dr Watts with a PMH of bronchitis, HTN, HLD, arthritis and leg pain. Patient was brought into the ER today for altered mental status / worsening confusion. Per chart records, patient's mental health has been worsening over the last several months. She has a history of aggressive behavior to her when he is the "other Don", to the point she fired a home health nurse after believing she was having an affair with him. Patient is alert but disoriented and confused and unable to recall the events of the past day. Patient was previous seen in the ER 10/20/16 with a headache and mild confusion. CT of the head done at that time was non acute. ER eval revealed an unremarkable cbc. unremarkable cmp. tsh wnl. negative uds. negative etoh. ua positive for 75 leukocytes, 5-10 wbc and 2+ wbc. urine culture is pending. last echo done 10/20/16 showed ef 60-65% with mod LVH, diastolic dysfunction, mild MR, mild TR, mild TN, and pulmonary HTN with RVSP at 49. Patient to be admitted for altered mental status and UTI. HOSPITAL COURSE: The patient was admitted for acute toxic encephalopathy secondary to urinary tract infection. The patient does have baseline dementia, likely Alzheimers, but has never had formal testing or seen neurology. Brain MRI was obtained on 11/17/2016 and was unremarkable for any additional possible sources of the encephalopathy. Although the final urine culture result was no growth, the patient was treated with IV Rocephin and completed a 3 day course on 2016. While on treatment for the UTI, the patients mental status and encephalopathy did improve. The patient was also found to have significantly elevated blood pressures and it is quite possible that the patients hypertensive urgency was also contributing to her acute encephalopathy. Multiple medication adjustments in the patients antihypertensive regimen were made during the patients hospital stay. Further adjustments by the patients PCP may be necessary over the next few weeks. Given the patients age and comorbidities, it is reasonable for her goal blood pressure to be less than 140- 150/90mmHg. The patient was back to her baseline mental status at the time of discharge. Due to the patients baseline dementia and expected progression of the dementia over time, the patient and her were discharged to the [facility] in stable condition on 11/22/2016. FOLLOW-UP APPOINTMENTS: -PCP, Dr. Watts, on 11/25/2016 at 10:15 AM -Check BMP within 1 week RADIOLOGY REPORTS: Single view chest x-ray on 11/16/2016 showed: The cardiac silhouette is borderline in size, unchanged. The mediastinum and hilum are within normal limits. The lung luna are clear. I do not see evidence for an infiltrate, effusion or pulmonary edema. IMPRESSION: No acute cardiopulmonary process. Brain MRI on 11/17/2016 showed: IMPRESSION: Unable to obtain post gadolinium images due to patient agitation. Age-related atrophy. No definable acute intracranial process. Procedures Performed: none Discharge Disposition: [facility] self care Disposition: [facility] self-care Condition: Stable Discharge Activity: Activity as tolerated Discharge Diet: General/regular food, Resume usual diet Referrals: Melva Watts MD [Primary Care Provider] - One Week Additional Patient Instructions (free text): TCM appointment at discharge - Follow up appointment with Dr. Watts 11/25/16 at 10:15 am. Call Deepthi at [phone]. Prescriptions (Any new or edited meds): Aspirin [Aspirin Chewable] 81 mg PO DAILY #90 tab.chew Haloperidol [Haldol] 1 - 2 mg PO TID PRN #90 tablet PRN Reason: Anxiety Haloperidol [Haldol] 1 mg PO BID #60 tablet Metoprolol Succinate [Toprol Xl] 100 mg PO DAILY #90 tablet.sa Spironolactone [Aldactone] 25 mg PO DAILY #30 tablet amLODIPine BESYLATE [Norvasc] 10 mg PO DAILY #30 tablet Complete Home Medications List: Complete Home Medication List: Enalapril Maleate [Vasotec] 20 mg PO BID 06/19/14 Hydrochlorothiazide [Hydrodiuril] 25 mg PO DAILY 06/19/14 Simvastatin [Zocor] 10 mg PO DAILY 06/19/14 Aspirin [Aspirin Chewable] 81 mg PO DAILY #90 tab.chew 11/22/16 Haloperidol [Haldol] 1 - 2 mg PO TID PRN #90 tablet 11/22/16 Haloperidol [Haldol] 1 mg PO BID #60 tablet 11/22/16 Metoprolol Succinate [Toprol Xl] 100 mg PO DAILY #90 tablet.sa 11/22/16 Spironolactone [Aldactone] 25 mg PO DAILY #30 tablet 11/22/16 amLODIPine BESYLATE [Norvasc] 10 mg PO DAILY #30 tablet 11/22/16 Amb Orders for Discharge: Basic Metabolic Panel Time Frame: 1 Week, Location: Determined By Patient
== END 2016-11-22 13:35 | disposition home or self-care (01) | DRG 690 ==
LOC: ER 20:39 → MS 22:33 → OBSVTOIN 11-16 13:04
PROVIDERS: ADMIT Nurse Practitioner Critical Care Medicine; ATTEND Internal Medicine
DX: N30.00 Acute cystitis without hematuria (principal); I67.4 Hypertensive encephalopathy; I50.32 Chronic diastolic (congestive) heart failure; F06.2 Psychotic disorder with delusions due to known physiological condition; F05 Delirium due to known physiological condition; R41.0 Disorientation, unspecified; I16.0 Hypertensive urgency; I27.2 Other secondary pulmonary hypertension; E87.6 Hypokalemia; I10 Essential (primary) hypertension; F03.90 Unspecified dementia, unspecified severity, without behavioral disturbance, psychotic disturbance, mood disturbance, and anxiety
CPT/HCPCS: 36415; 70553; 71010; 80048; 80053; 80173; 80299; 80307; 81001; 82140; 82607; 83605; 83880; 84145; 84443; 84484; 85025; 87040; 87086; 93005; 97162; 97165; 99284; G0378; G0480; G0481; G8978; G8979; G8980

== ENCOUNTER 2016-11-23 19:22 | Emergency (ER) | payer MEDICARE, OTHER ==
--- NOTE | 2016-11-23 20:03 | ERNOTE ---
Medical Problem HPI - Narrative Date of Service: 11/23/16 - General Chief Complaint: General Assessment Time Seen by Provider: 11/23/16 19:52 Source: patient Exam Limitations: no limitations - Immun/Allergies/Home Medications Immunizations: IMMUNIZATION HX Immunizations Up to Date Yes History of Influenza Vaccine Yes Hx Pneumococcal Vaccination Yes Allergies/Adverse Reactions: Allergies sulfamethoxazole [From Bactrim] Adverse Reaction (Mild, Verified 11/23/16 19:27) Other trimethoprim [From Bactrim] Adverse Reaction (Mild, Verified 11/23/16 19:27) Other Home Medications: HOME MEDICATIONS Enalapril Maleate [Vasotec] 20 mg PO BID 06/19/14 [Last Taken Unknown] Hydrochlorothiazide [Hydrodiuril] 25 mg PO DAILY 06/19/14 [Last Taken Unknown] Simvastatin [Zocor] 10 mg PO DAILY 06/19/14 [Last Taken Unknown] Aspirin [Aspirin Chewable] 81 mg PO DAILY #90 tab.chew 11/22/16 [Last Taken Unknown] Haloperidol [Haldol] 1 - 2 mg PO TID PRN #90 tablet 11/22/16 [Last Taken Unknown ] Haloperidol [Haldol] 1 mg PO BID #60 tablet 11/22/16 [Last Taken Unknown] Metoprolol Succinate [Toprol Xl] 100 mg PO DAILY #90 tablet.sa 11/22/16 [Last Taken Unknown] Spironolactone [Aldactone] 25 mg PO DAILY #30 tablet 11/22/16 [Last Taken Unknown] amLODIPine BESYLATE [Norvasc] 10 mg PO DAILY #30 tablet 11/22/16 [Last Taken Unknown] - History of Present History Narrative: Pt. comes in with c/o pt. being tired and confused after taking new xanax prescription for the first time tonight. Pt. family is requesting it to be discontinued so pt. had to be sent to the ER to accomplish this. Nurse denies any AMS prior to medication administration, fever, SOB, and NVD. Review of Systems - Review of Systems Constitutional: Present: recent illness, other - increased lethargy and confusion. Absent: fever, chills, weakness, fatigue, malaise EYE: Present: no symptoms reported ENT: Present: no symptoms reported Respiratory: Present: no symptoms reported. Absent: shortness of breath, cough , wheezing Cardiology: Present: no symptoms reported. Absent: chest pain, palpitations, edema Gastrointestinal/Abdominal: Present: no symptoms reported. Absent: nausea, vomiting, diarrhea, abdominal pain Genitourinary: Present: no symptoms reported. Absent: frequency, pain, dysuria , decreased urinary output Musculoskeletal: Present: no symptoms reported. Absent: back pain, joint pain Skin: Present: no symptoms reported. Absent: rash, change in color Neurological: Present: no symptoms reported. Absent: headache, dizziness/light- headedness, numbness, tingling All Other Systems: All systems neg except as marked - Patient's Past Medical History Patient History - Medical: Arthritis, Chronic Pain Patient History - Cardiac/Respiratory: Hypertension, Hyperlipidemia Patient History - Cancer: No Hx of Cancer Patient History - Surgical Procedures: Appendectomy, Cholecystectomy, Hysterectomy, Hernia Repair, Orthopedic Patient History - Other: None - Family History Father Family History - Medical: , History Unknown Family History - Cardiac/Respiratory: History Unknown Family History - Cancer: History Unknown Mother Family History - Medical: , History Unknown Family History - Cardiac/Respiratory: Coronary Heart Disease, Hypertension, Myocardial Infarction Family History - Cancer: No pertinent family hx - Social History Living Situations: assisted living Abuse History: No History of abuse Psych History: No pertinent hx Does anyone smoke in the home?: No Alcohol Use: none Drug Use: none - Immunizations Immunizations Up to Date: Yes Hx Pneumococcal Vaccination: Yes History of Influenza Vaccine: Yes Physical Exam - Physical Exam General Appearance: Present: wd/wn, alert, no apparent distress Head Exam: Present: normal inspection, no evidence of injury Eye Exam: Normal inspection: bilateral, PERRL: bilateral, EOMI: bilateral Ears, Nose, Throat: Present: normal ENT inspection, normal pharynx Neck: Present: normal inspection, nontender. Absent: lymphadenopathy (R), lymphadenopathy (L) Respiratory: Present: no respiratory distress, normal breath sounds, no accessory muscle use, chest nontender, lungs clear Cardiovascular/Chest: Present: regular rate, rhythm, no murmur, normal peripheral pulses Gastrointestinal/Abdominal: Present: normal bowel sounds, nontender, nondistended, soft, no organomegaly Back Exam: Present: normal inspection, normal range of motion, no CVA tenderness , no vertebral tenderness Extremity Exam: Present: normal inspection, non-tender, normal range of motion, no edema Neurological Exam: Present: alert, normal mood/affect, no motor/sensory deficits , other - sleeping awakens easily, confused to time and place Skin Exam: Present: normal color, warm/dry. Absent: pallor, skin rash ED Progress - Date and Time Seen: Date and Time: 11/23/16 21:51 Discussed at length that pt. with dementia not safe in environment where she could not be monitored / as they had to administer medications to decrease the wandering and agitation to keep her in this environment so the reaction is as expected with this medication but fear that xanax is too strong for pt. so will cut dose and make it second line PRN with Haldol as first line. Recommend that family seek out memory care unit and they agree with this and will contact vocational case manager at [facility] tomorrow. Until then medication will be used to control behaviors and try to keep pt. as safe as possible in not ideal situation. Family states understanding that pt. does not qualify for admission here at this time and family declines any further questions. 11/23/16 21:55 As pt. has relatively negative assessment for pt. feel that no labs or xrays are needed at this time. Pt. bradycardia HR baseline for pt. 11/23/16 21:58 - Vital Signs Patient's Vital Signs:: I have reviewed the patient's vital signs. Vital Signs: Vital Signs 11/23/16 19:23 Temperature 36.4 C L Pulse Rate 49 L Respiratory 16 Rate Blood Pressure 126/55 O2 Sat by Pulse 96 Oximetry - Progress/Reassessment Chief Complaint: General Assessment Departure - Departure Clinical Impression: Dementia Qualifiers: Dementia type: unspecified type Dementia behavioral disturbance: with behavioral disturbance Qualified Code(s): F03.91 - Unspecified dementia with behavioral disturbance Medication side effect Qualifiers: Encounter type: initial encounter Qualified Code(s): T88.7XXA - Unspecified adverse effect of drug or medicament, initial encounter Disposition: [facility] self-care Condition: Good Referrals: Melva Watts MD [Primary Care Provider] -
[2016-11-23 21:08] VITALS: BP 135/65
== END 2016-11-23 21:07 | disposition home or self-care (01) ==
LOC: ER 19:22
DX: F03.91 Unspecified dementia, unspecified severity, with behavioral disturbance (principal); T42.4X5A Adverse effect of benzodiazepines, initial encounter; Y92.9 Unspecified place or not applicable

== ENCOUNTER 2016-12-20 10:32 | Emergency (ER) | payer MEDICARE, OTHER ==
[2016-12-20] MEDS ORDERED: LIDOCAINE HCL 1,000 MG/50 ML VIAL ONE (10:53)
[2016-12-20] MEDS ORDERED: DIPHTH,PERTUSS(ACELL),TET VAC 0.5 ML VIAL IM ONE ×2 (10:53→11:01)
[2016-12-20 11:33] VITALS: BP 119/56
--- NOTE | 2016-12-20 11:39 | ERNOTE ---
Head Injury HPI - General Injury to: head Time Seen by Provider: 12/20/16 11:06 Source: patient Exam Limitations: no limitations - Immun/Allergies/Home Medications Immunization: IMMUNIZATION HX Immunizations Up to Date Yes History of Influenza Vaccine Yes Hx Pneumococcal Vaccination Yes Allergies/Adverse Reactions: Allergies Allergy/AdvReac Type Severity Reaction Status Date / Time sulfamethoxazole AdvReac Mild Other Verified 12/20/16 10:48 [From Bactrim] trimethoprim [From Bactrim] AdvReac Mild Other Verified 12/20/16 10:48 Home Medications: HOME MEDICATIONS Enalapril Maleate [Vasotec] 10 mg PO BID 06/19/14 [Last Taken Unknown] Hydrochlorothiazide [Hydrodiuril] 25 mg PO DAILY 06/19/14 [Last Taken Unknown] Simvastatin [Zocor] 10 mg PO DAILY 06/19/14 [Last Taken Unknown] Aspirin [Aspirin Chewable] 81 mg PO DAILY #90 tab.chew 11/22/16 [Last Taken Unknown] Metoprolol Succinate [Toprol Xl] 100 mg PO DAILY #90 tablet.sa 11/22/16 [Last Taken Unknown] Spironolactone [Aldactone] 25 mg PO DAILY #30 tablet 11/22/16 [Last Taken Unknown] amLODIPine BESYLATE [Norvasc] 10 mg PO DAILY #30 tablet 11/22/16 [Last Taken Unknown] QUEtiapine FUMARATE [Seroquel] 25 mg PO BID 12/20/16 [Last Taken Unknown] - History of Present Illness Narrative: Patient states that she tripped over the table at the house and caught her left eyebrow on the corner of the table. Patient has no significant complaint and denies anything other than a mild headache over the area the laceration. Occurred: just prior to arrival Location Occurred: home Severity: mild Head Injury Location: facial Method of Injury: Reports: fell Reason for Fall: Reports: tripped Loss of Consciousness: Reports: no loss of consciousness Associated Symptoms: Reports: denies symptoms Review of Systems - Review of Systems Constitutional: Present: See HPI EYE: Present: no symptoms reported ENT: Present: no symptoms reported Respiratory: Present: no symptoms reported Cardiology: Present: no symptoms reported Gastrointestinal/Abdominal: Present: no symptoms reported Genitourinary: Present: no symptoms reported Musculoskeletal: Present: no symptoms reported Skin: Present: no symptoms reported Neurological: Present: no symptoms reported Endocrine: Present: no symptoms reported Hematologic/Lymphatic: Present: no symptoms reported Psych: Present: no symptoms reported - Patient's Past Medical History Patient History - Medical: Arthritis, Chronic Pain Patient History - Cardiac/Respiratory: Hypertension, Hyperlipidemia Patient History - Cancer: No Hx of Cancer Patient History - Surgical Procedures: Appendectomy, Cholecystectomy, Hysterectomy, Hernia Repair, Orthopedic Patient History - Other: None - Family History Father Family History - Medical: , History Unknown Family History - Cardiac/Respiratory: History Unknown Family History - Cancer: History Unknown Mother Family History - Medical: , History Unknown Family History - Cardiac/Respiratory: Coronary Heart Disease, Hypertension, Myocardial Infarction Family History - Cancer: No pertinent family hx - Social History Living Situations: assisted living Abuse History: No History of abuse Psych History: No pertinent hx Does anyone smoke in the home?: No Smoking Status: Never smoker Alcohol Use: none Drug Use: none - Immunizations Immunizations Up to Date: Yes Hx Pneumococcal Vaccination: Yes History of Influenza Vaccine: Yes Physical Exam - Physical Exam General Appearance: Present: wd/wn, alert, mild distress Head Exam: Present: lacerations - just above the left eyebrow Eye Exam: Normal inspection: bilateral, PERRL: bilateral Ears, Nose, Throat: Present: normal ENT inspection, H, normal pharynx Neck: Present: normal inspection, nontender Respiratory: Present: no respiratory distress, normal breath sounds, no accessory muscle use, chest nontender, lungs clear Cardiovascular/Chest: Present: regular rate, rhythm, no murmur, normal peripheral pulses Gastrointestinal/Abdominal: Present: normal bowel sounds, nontender, nondistended, soft, no organomegaly Rectal Exam: Present: deferred Back Exam: Present: normal inspection, normal range of motion Extremity Exam: Present: normal inspection, non-tender, no edema, normal range of motion Neurological Exam: Present: alert, oriented, normal mood/affect, no motor/ sensory deficits, porcelain mixer II-XII nml as tested Skin Exam: Present: normal color, warm/dry Lymphatic Exam: Present: no adenopathy ED Progress - Vital Signs Patient's Vital Signs:: I have reviewed the patient's vital signs. Vital Signs: Vital Signs 12/20/16 12/20/16 10:32 11:00 Pulse Rate 63 60 Respiratory 12 12 Rate Blood Pressure 128/63 128/63 O2 Sat by Pulse 96 96 Oximetry - Progress/Reassessment Chief Complaint: Head Injury Procedures Left Upper Face Anesthesia: 1% Lidocaine I & D Prep: betadine prep, sterile drapes applied Length of Repair/Wound (cm): 3 Wound's Depth/Shape: into subcutaneous Wound Explored: clean Wound Intervention: irrigated w/saline Distal NVT: neuro/vasc intact, no tendon injury Suture Size/Type: 4-0 Number of Sutures: 7 Wound Dressing: sterile dressing applied Complications: Pt hilda procedure well Plan - Plan Plan: I suspect a component of underlying mild dementia being present, however the patient was pleasant and cooperative during her entire stay here. Sutures will come out in 5-7 days and bacitracin was placed over the suture site. Departure Clinical Impression: Laceration - Departure Disposition: [facility] self-care Condition: Good Instructions: Laceration Care, Adult, [id number], Facial Laceration Referrals: Melva Watts MD [Primary Care Provider] -
== END 2016-12-20 11:50 | disposition home or self-care (01) ==
LOC: ER 10:32
PROC: 0JQ10ZZ Repair Face Subcutaneous Tissue and Fascia, Open Approach (ICD-10-PCS; principal; 2016-12-20)
DX: S01.81XA Laceration without foreign body of other part of head, initial encounter (principal); W01.190A Fall on same level from slipping, tripping and stumbling with subsequent striking against furniture, initial encounter; Y92.009 Unspecified place in unspecified non-institutional (private) residence as the place of occurrence of the external cause; Z23 Encounter for immunization; I10 Essential (primary) hypertension; E78.5 Hyperlipidemia, unspecified

== ENCOUNTER 2017-02-02 12:43 | Emergency (ER) | payer MEDICARE, OTHER ==
--- NOTE | 2017-02-02 13:06 | ERNOTE ---
Lower Extremity HPI - Narrative Date of Service: 02/02/17 - General Lower Extremities Pain: leg: right Time Seen by Provider: 02/02/17 12:44 Source: patient Exam Limitations: no limitations - Immun/Allergies/Home Medications Immunizations: IMMUNIZATION HX Immunizations Up to Date Yes History of Influenza Vaccine Yes Hx Pneumococcal Vaccination Yes Allergies/Adverse Reactions: Allergies Allergy/AdvReac Type Severity Reaction Status Date / Time sulfamethoxazole AdvReac Mild Other Verified 02/02/17 12:51 [From Bactrim] trimethoprim [From Bactrim] AdvReac Mild Other Verified 02/02/17 12:51 Home Medications: HOME MEDICATIONS Enalapril Maleate [Vasotec] 10 mg PO BID 06/19/14 [Last Taken Unknown] Hydrochlorothiazide [Hydrodiuril] 25 mg PO DAILY 06/19/14 [Last Taken Unknown] Simvastatin [Zocor] 10 mg PO DAILY 06/19/14 [Last Taken Unknown] Aspirin [Aspirin Chewable] 81 mg PO DAILY #90 tab.chew 11/22/16 [Last Taken Unknown] Metoprolol Succinate [Toprol Xl] 100 mg PO DAILY #90 tablet.sa 11/22/16 [Last Taken Unknown] Spironolactone [Aldactone] 25 mg PO DAILY #30 tablet 11/22/16 [Last Taken Unknown] amLODIPine BESYLATE [Norvasc] 10 mg PO DAILY #30 tablet 11/22/16 [Last Taken Unknown] QUEtiapine FUMARATE [Seroquel] 25 mg PO BID 12/20/16 [Last Taken Unknown] Naproxen [Naprosyn] 500 mg PO BID PRN #10 tab 02/02/17 [Last Taken Unknown] - History of Present Illness Narrative: Pt. comes in with c/o R upper leg pain, swelling,and bruising over her veins of her R leg for 2 three days. Pt. states that she has had increased pain for 2-3 months but the swelling and discoloration just occurred. Pt. denies any fever, SOB, CP, NVD, numbness, tingling but did call her PCP prior to arrival with him recommending that she come here. Occurred: last week Location of Incident: home Method of Injury: Reports: no apparent injury Modifying Factors - (Improves): Reports: other - denies Modifying Factors - (Worsens): Reports: other - ambulation Other Injuries: Reports: none Prior Treament: Reports: similar symptoms before Review of Systems - Review of Systems Constitutional: Present: no symptoms reported. Absent: recent illness, fever, chills, weakness, fatigue, malaise EYE: Present: no symptoms reported ENT: Present: no symptoms reported Respiratory: Present: no symptoms reported. Absent: shortness of breath, cough , wheezing Cardiology: Present: no symptoms reported. Absent: chest pain, palpitations, edema Gastrointestinal/Abdominal: Present: no symptoms reported. Absent: nausea, vomiting, diarrhea Genitourinary: Present: no symptoms reported Musculoskeletal: Absent: back pain, muscle pain - R inner thigh, joint pain Skin: Present: change in color - purple discoloration near R inner femoral vein Neurological: Present: no symptoms reported. Absent: weakness, numbness, tingling Hematologic/Lymphatic: Present: no symptoms reported. Absent: easy bruising, easy bleeding, swollen glands All Other Systems: All systems neg except as marked - Patient's Past Medical History Patient History - Medical: Arthritis, Chronic Pain Patient History - Cardiac/Respiratory: Hypertension, Hyperlipidemia Patient History - Cancer: No Hx of Cancer Patient History - Surgical Procedures: Appendectomy, Cholecystectomy, Hysterectomy, Hernia Repair, Orthopedic Patient History - Other: None LMP (females 10-50): Menopausal - Family History Father Family History - Medical: , History Unknown Family History - Cardiac/Respiratory: History Unknown Family History - Cancer: History Unknown Mother Family History - Medical: , History Unknown Family History - Cardiac/Respiratory: Coronary Heart Disease, Hypertension, Myocardial Infarction Family History - Cancer: No pertinent family hx - Social History Living Situations: assisted living Abuse History: No History of abuse Psych History: No pertinent hx - Immunizations Immunizations Up to Date: Yes Hx Pneumococcal Vaccination: Yes History of Influenza Vaccine: Yes Physical Exam - Physical Exam General Appearance: Present: wd/wn, alert, no apparent distress Head Exam: Present: normal inspection, no evidence of injury Eye Exam: Normal inspection: bilateral Neck: Present: normal inspection, nontender. Absent: lymphadenopathy (R), lymphadenopathy (L) Respiratory: Present: no respiratory distress Cardiovascular/Chest: Present: regular rate, rhythm, no murmur, normal peripheral pulses Back Exam: Present: normal inspection, normal range of motion, no vertebral tenderness Extremity Exam: Present: extremity edema - trace Bilateral, other - edema and induration surrounding discolored vein. Absent: calf tenderness Neurological Exam: Present: alert, oriented, normal mood/affect, no motor/ sensory deficits Skin Exam: Present: warm/dry, other - purple discoloration to R inner thigh surrounding vein apprix 2cm x 10 cm ED Progress - Date and Time Seen: Date and Time: 02/02/17 14:10 Feel that this is likely superficial thrombophlebitis so will write prescription for 14mmHg compression stockings and start on Naproxen for a week. - Results and Orders Patient's Lab Results:: I have reviewed the patient's lab results. Results and Orders: D dimer elevated likely from phlebitis - Vital Signs Patient's Vital Signs:: I have reviewed the patient's vital signs. Vital Signs: Vital Signs 02/02/17 12:46 Temperature 35.8 C L Pulse Rate 58 L Respiratory 14 Rate Blood Pressure 146/69 O2 Sat by Pulse 98 Oximetry - CT/Ultrasound CT/Ultrasound Narrative: US negative for DVT - Progress/Reassessment Chief Complaint: Lower Extremity Pain/ Injury Departure Clinical Impression: Superficial thrombophlebitis of right leg - Departure Disposition: Home self-care Condition: Good Instructions: Phlebitis, [id number] Additional Instructions: Please get thigh high compression stockings and wear daily. Also Please take Naproxen for 5 days and follow up with Dr thornton in 1-2 days. Referrals: Alvina Thornton MD [Primary Care Provider] - Prescriptions: Naproxen [Naprosyn] 500 mg PO BID PRN #10 tab PRN Reason: Pain
[2017-02-02 13:09] LABS: Hematocrit 38.3 % (37.0-47.0); Hemoglobin 12.7 gm/dL (12.5-16.0); Mean Cell Volume 91.8 fl (78-100); Mean Corpuscular Hemoglobin 30.5 pg (27-31); Mean Corpuscular Hgb Conc 33.2 g/dl (32-36); Mean Platelet Volume 9.7 fl (6.0-9.5); Neutrophil # 7.2 K/mm3 (1.3-6.0); Neutrophil % 76.3 % (42-75.0); Platelet Count 194 K/mm3 (150-450); Red Blood Count 4.17 M/mm3 (4.2-5.4); Red Cell Distribution Width 15.4 % (11.5-14.0); White Blood Count 9.4 K/mm3 (4.0-10.5)
[2017-02-02 13:20] LABS: Albumin * 3.5 gm/dl (3.4-5.0); Anion Gap 9.9 mmol/L (6.8-13.8); Bilirubin, Total 0.9 mg/dL (0.0-1.1); Ca. Corrected For Albumin 9.2 mg/dL (8.4-10.2); Calcium * 9.1 mg/dL (7.9-10.9); Carbon Dioxide 30.9 mmol/L (24-32.6); Potassium 3.8 mmol/L (3.4-4.6); Total Protein 7.3 gm/dL (6.2-8.2)
[2017-02-02 14:27] VITALS: BP 135/60
== END 2017-02-02 14:28 | disposition home or self-care (01) ==
LOC: ER 12:43
DX: I80.01 Phlebitis and thrombophlebitis of superficial vessels of right lower extremity (principal)